=== PATIENT | female | born 1950 | race African-American/Black ===

== ENCOUNTER 2019-11-15 17:38 | Emergency (ER) | payer MEDICARE, SELFPAY ==
--- NOTE | ~2019-11-15 | CT_ITS ---
EXAMINATION: CT brain wo con DATE: 11/15/2019 18:28 INDICATION: Hypertension. Numbness. Paresthesias at the legs. TECHNIQUE: Computed tomography (CT) of the head was performed without intravenous contrast. Sagittal and coronal reconstructions were performed. The mA was adjusted according to patient size. Iterative reconstruction technique was employed. The dose-length product was 605.33 mGy-cm. COMPARISON: None FINDINGS: No acute intracranial hemorrhage, acute infarction or abnormal extra axial fluid collection. There is mild scattered white matter hypoattenuation consistent with chronic small vessel ischemic disease. V entricles are normal and symmetric. No mass/mass effect. The orbits, paranasal sinuses and mastoid ai r cells are normal. Intracranial calcified cerebral atherosclerosis is noted at the carotid siphons. IMPRESSION: 1. Scattered white matter hypoattenuation consistent with chronic small vessel ischemic disease. No a cute intracranial process. Reviewed, dictated and finalized at location A. HELPER IMPRESSION: 1. Scattered white matter hypoattenuation consistent with chronic small vessel ischemic disease. No acute intracranial process.
--- NOTE | ~2019-11-15 | CT_ITS ---
EXAMINATION: CT abdomen pelvis wo con DATE: 11/15/2019 19:20 INDICATION: Elevated liver function tests TECHNIQUE: Computed tomography (CT) of the abdomen and pelvis was performed with 100 mL Omnipaque-350 intravenous contrast. Automated exposure control and iterative reconstruction technique were employe d. The dose-length product was 1448.03 mGy-cm. COMPARISON: None FINDINGS: Lung bases are clear. Heart size is normal. Atherosclerotic coronary artery calcification. No pericar dial or pleural effusion. Liver, gallbladder, spleen, pancreas, bilateral adrenal glands and kidneys are normal. 2 short segments of the transverse colon extending to a couple of several small ventral h ernias. No bowel obstruction. Appendix is normal. Bladder and bilateral adnexa are normal. The uterus is not identified and has likely been surgically resected. No free intraperitoneal gas or fluid. No pathologically enlarged abdominal or pelvic lymphadenopathy. Moderate degenerative skeletal changes i n the lumbar spine and at the bilateral sacroiliac joints. IMPRESSION: 1. No acute intra-abdominal/pelvic process. 2. Multiple ventral hernias 2 containing short segments of nonobstructed transverse colon. Reviewed, dictated and finalized at location A. K PACKER IMPRESSION: 1. No acute intra-abdominal/pelvic process. 2. Multiple ventral hernias 2 containing short segments of nonobstructed transv erse colon.
[2019-11-15 17:43] VITALS: BP 161/100; PULSE 105; RESP 18; TEMP 36.3; O2SAT 100
--- NOTE | 2019-11-15 17:57 | ECG_ITS ---
Measurements Intervals [place] Rate: 110 P: 42 ND: 201 QRS: -39 QRSD: 85 T: 15 QT: 320 QTc: 433 Interpretive Statements SINUS TACHYCARDIA POOR R WAVE PROGRESSION, ANTERIOR LEADS INFERIOR INFARCT, AGE INDETERMINATE ABNORMAL ECG Electronically Signed On 11-16-2019 7:16:04 [employer] SALES REPRESENTATIVE by Tom Arenas D.O.
--- NOTE | 2019-11-15 18:10 | ED.RECABL ---
HPI - Recheck/Abnormal Lab/Rx General Chief Complaint: Recheck/Abnormal Lab/Rx Stated Complaint: high blood pressure Time Seen by Provider: 11/15/19 18:02 Source: patient and RN notes reviewed Mode of arrival: ambulatory Limitations: no limitations History of Present Illness HPI narrative: Pt is a 69 y/o female with a Hx of HTN, who presents to the ED with c/o hypertension. She notes that she is currently taking her normal dosage of bisoprolol-hydrochlorothiazide, Hydralazine 100 mg BID, and Clonidine .2 mg HS, stating that she last took her HCTZ and Hydralazine around 10 AM this morning. Pt notes that she is due to take her Hydralazine around 10 PM this evening. She states that she has been checking her BP on her home monitor over the past several days, and states that her BP was 183/94 this afternoon, which prompted her to be seen at an urgent care facility. Pt was subsequently sent to the ED. She currently reports a frontal headache, dyspnea on exertion, and tingling in her bilateral legs starting today. Pt describes her headache as a pressure behind her eyes. She denies any CP. MD complaint: abnormal lab Description of abnormal result: BP of 183/94. Associated symptoms: other (dyspnea on exertion; frontal headache; tingling in bilateral legs) Related Data Home Medications Medication Instructions Recorded Confirmed albuterol sulfate [Ventolin HFA] 2 puff INHALATION Q6H PRN 11/15/19 bisoprolol-hydrochlorothiazide 1 tablet PO DAILY 11/15/19 clonidine HCl 0.2 mg PO HS 11/15/19 hydralazine 100 mg PO BID 11/15/19 mometasone [Asmanex HFA] 2 puff INHALATION BID 11/15/19 montelukast 10 mg PO DAILY 11/15/19 yzotvkqoffmk-vtfv-nbhzq acid 1 tablet PO DAILY 11/15/19 [Centrum Women] olopatadine 1 drp OPHTHALMIC (EYE) BID 11/15/19 pravastatin 20 mg PO DAILY 11/15/19 tramadol 50 mg PO HS 11/15/19 Allergies Allergy/AdvReac Type Severity Reaction Status Date / Time iodine Allergy Severe THROAT Verified 11/15/19 17:57 SWELLS CLOSED Sulfa (Sulfonamide Allergy Unknown Verified 11/15/19 17:57 Antibiotics) Shrimp Allergy Severe THROAT Uncoded 11/15/19 17:57 BLACK CLOSED Review of Systems Review of Systems: All systems reviewed & are unremarkable except as noted in HPI and below Constitutional: Constitutional: Reports headache(s) (frontal) Cardiovascular: Cardiovascular: Denies chest pain Respiratory: Respiratory: Reports dyspnea on exertion Neurologic: Reports tingling (bilateral legs) PMFSH Past Medical History Medical History Anemia HTN (hypertension) Osteoarthritis Umbilical hernia Surgical History Surgical History History of section History of hysterectomy History of right knee joint replacement Hx of umbilical hernia repair Social History Social History Smoking status: Never smoker Gender identity (if verbalized by the patient): Female Exam Narrative: Exam Narrative: APPEARANCE: No acute distress, nontoxic, resting in bed EYES: EOMI HEENT: Normocephalic, atraumatic, OMM RESPIRATORY: No respiratory distress Clear to auscultation bilaterally with no rhonchi wheezing or rales. CARDIOVASCULAR: Regular rate and rhythm without murmurs rubs or gallops. ABDOMINAL: Soft, nontender, nondistended, no rebound or guarding MUSCULOSKELETAl: Moves all extremities. No clubbing, cyanosis or edema. NEURO: Awake and alert bx 3. Following commands, speech normal, no focal deficits, muscle strength 5 out of 5 bilateral upper and lower extremities SKIN:: Warm, dry. No rashes lesions or abrasions PSYCHIATRIC: Normal affect/mood, Course Course Emergency Course: Patient normally takes Catapres 0.2 mg at night as well as hydralazine Catapres given with improvement of blood pressure Discussed with patient lab work came back. Patient denies any a
[2019-11-15 18:26] LABS: Basophils Percent Auto 0.7 % (0.2-1.2); Eosinophils Absolute Auto 0.1 K/mm3 (0-0.3); Eosinophils Percent Auto 1.3 % (0-4.4); Hematocrit 48.1 % (37.0-47.0); Hemoglobin 14.9 g/dL (12.0-15.0); Immature Granulocyte Absolute 0.02 K/mm3 (0.00-0.031); Immature Granulocyte Percent A 0.3 % (0-0.5); Lymphocytes Absolute Auto 1.92 K/mm3 (0.9-3.2); Lymphocytes Percent Auto 32.1 % (18.3-44.2); Mean Corpuscular Hemoglobin 28.5 pg (26-34); Mean Corpuscular Volume 92.1 fl (80-100); Mean Platelet Volume 12.3 fl (7.4-10.4); Monocytes Absolute Auto 0.6 K/mm3 (0.1-0.6); Monocytes Percent Auto 9.9 % (2.6-8.5); Neutrophils Absolute Auto 3.3 K/mm3 (1.3-6.7); Neutrophils Percent Auto 55.7 % (45.5-73.1); Platelet Count Result 156 k/mm3 (150-375); Red Blood Count 5.22 M/mm3 (4.2-5.4); Red Cell Distribution Width 17.9 % (11.5-14.5)
[2019-11-15] MEDS: CLONIDINE HCL 0.2 MG TABLET PO (18:35)
[2019-11-15 18:37] LABS: Alanine Aminotransferase 566 U/L (4-35); Alkaline Phosphatase 166 U/L (38-126); Aspartate Amino Transferase 581 U/L (14-36); Bilirubin,Total 4.1 mg/dL (0.2-1.3); Blood Urea Nitrogen 9 mg/dL (7-17); Calcium 9.4 mg/dL (8.4-10.2); Carbon Dioxide 26 mmol/L (22-30); Chloride 103 mmol/L (98-107); Estimated Glomerular Filt Rate > 60; Glucose 102 mg/dL (65-105); Potassium 3.8 mmol/L (3.4-5.0); Sodium 141 mmol/L (137-145)
[2019-11-15 19:07] VITALS: BP 178/105; PULSE 84; RESP 14; O2SAT 100
--- NOTE | 2019-11-15 19:26 | PC.NURSE ---
Called lab to add on Lipase
[2019-11-15 19:34] LABS: Lipase 210 U/L (23-300)
[2019-11-15 20:13] VITALS: BP 156/89; PULSE 74; RESP 20; O2SAT 98
--- NOTE | 2019-11-15 21:30 | PC.NURSE ---
Called lab to add on PT INR, PTT, Hepatitis Panel
[2019-11-15 21:49] LABS: INR 1.2; Prothrombin Time 14.5 Seconds (11.1-14.7)
[2019-11-15 22:13] LABS: Hepatitis B Surface Antigen Negative (Negative)
[2019-11-15 22:19] LABS: HAV RESULT Negative (Negative); Hepatitis B Core IgM Result Negative (Negative)
[2019-11-15 22:31] LABS: Hepatitis C Virus Antibody Negative (Negative)
[2019-11-15 22:51] VITALS: BP 168/86; PULSE 87; RESP 20; O2SAT 100
== END 2019-11-15 22:56 | disposition home or self-care (01) ==
PROVIDERS: Emergency Provider Emergency Medicine
DX: I10 Essential (primary) hypertension (principal); R94.5 Abnormal results of liver function studies; D64.9 Anemia, unspecified; M19.90 Unspecified osteoarthritis, unspecified site; Z96.651 Presence of right artificial knee joint; K43.9 Ventral hernia without obstruction or gangrene; R00.0 Tachycardia, unspecified; R94.31 Abnormal electrocardiogram [ECG] [EKG]
CPT/HCPCS: 36415; 70450; 74176; 80053; 80074; 83690; 85025; 85610; 85730; 93005; 99284; A9270

== ENCOUNTER 2019-11-25 11:09 | Outpatient (CLI) | payer MEDICARE, SELFPAY ==
--- NOTE | ~2019-11-25 | US_ITS ---
US right upper quadrant INDICATION: Increased liver enzymes PROCEDURE: Realtime right upper abdominal ultrasound. COMPARISON: No prior studies for comparison. FINDINGS: The pancreas is not adequately visualized due to bowel gas. Liver echotexture is increased , consistent with fatty infiltration. There is normal directional flow in the portal vein. The gallbladder is normal without stones, gallbladder wall thickening or pericholecystic fluid. Comm on bile duct measures 5 mm. No sonographic Rodriguez's sign. IMPRESSION: 1: Hepatic steatosis. Reviewed, dictated and finalized at location A. IMPRESSION: 1: Hepatic steatosis.
== END 2019-11-25 11:10 | disposition home or self-care (01) ==
DX: K76.0 Fatty (change of) liver, not elsewhere classified (principal)
CPT/HCPCS: 76705

== ENCOUNTER → 2019-12-11 15:04 | Outpatient (CLI) | payer MEDICARE, SELFPAY ==
--- NOTE | ~2019-12-11 | MM_ITS ---
EXAMINATION: MM screening [facility] w nakia HISTORY: Screening mammogram TECHNIQUE: Craniocaudal and mediolateral oblique 3-D tomosynthesis images were obtained and synthetic 2-D images were generated. CAD analysis was submitted and interpreted. COMPARISON: 09/14/2018, 06/07/2017, 01/28/2016 bilateral digital screening mammogram examinations BREAST PARENCHYMAL COMPOSITION: There are scattered areas of fibroglandular density. FINDINGS: There is no evidence of suspicious mass, calcification, or architectural distortion to sugg est malignancy in either breast. There has been no suspicious interval change. IMPRESSION: 1. No mammographic evidence of malignancy. 2. Recommend routine screening mammography in one year. BI-RADS Category 1: Negative Reviewed, dictated and finalized at location A.
== END ==
DX: Z12.31 Encounter for screening mammogram for malignant neoplasm of breast (principal)
CPT/HCPCS: 77063; 77067

== ENCOUNTER 2020-07-23 14:47 | Outpatient (CLI) | payer MEDICARE, SELFPAY ==
--- NOTE | ~2020-07-23 | DEXA_ITS ---
Bone Density Report Name: Malathi Barboza Age: 70 Sex: Female Ethnicity: Black Date of : 1950 Indication: postmenopausal; height loss; hysterectomy; Referring Provider: PHYSICIAN NOT ON STAFF Study: Bone densitometry was performed. Exam Date: July 23, 2020 Accession number: [id number] Bone Density: Region BMD T-score Z-score Classification AP Spine (L2, L3, L4) 1.152 0.7 2.0 Normal Femoral Neck (Left) 0.562 -2.6 -1.3 Osteoporosis Total Hip (Left) 0.732 -1.7 -0.8 Osteopenia Total Hip Bilateral Avg 0.834 -0.9 -0.2 Normal Femoral Neck (Right) 0.699 -1.4 -0.4 Osteopenia Total Hip (Right) 0.934 -0.1 0.5 Normal World Health Organization criteria for BMD impression classify patients as: Normal (T-score at or above -1.0), Osteopenia (T-score between -1.0 and -2.5), or Osteoporosis (T-score at or below -2.5). 10-year Fracture Risk: FRAX not reported because: Some T-score for Spine Total or Hip Total or Femoral Neck at or below -2.5 Previous Exams: Region Exam Age BMD T-score BMD Change BMD Change Date g/cm2 vs Baseline vs Previous AP Spine(L2, L3, L4) 07/23/2020 70 1.152 0.7 0.068(6.3%)# 0.089(8.4%)# 02/18/2018 67 1.063 -0.1 -0.021(-2.0%)# -0.021(-2.0%)# 07/29/2010 60 1.084 0.0 Total Hip(Left) 07/23/2020 70 0.732 -1.7 -0.304(-29.3%) -0.144(-16.5%) 02/18/2018 67 0.876 -0.5 -0.160(-15.4%) -0.160(-15.4%) 07/29/2010 60 1.036 0.8 Total Hip(Right) 07/23/2020 70 0.934 -0.1 0.094(11.2%)# 0.094(11.2%)# 02/18/2018 67 0.840 -0.8 0.000(0.0%)# 0.000(0.0%)# 07/29/2010 60 0.840 -0.8 *Denotes significance at 95% confidence level, LSC for AP Spine = 0.022 g/cm2, LSC for Total Hip = 0.027 g/cm2 Clinical Information Provided by Patient: Has used the following medications: Vitamin D, Calcium Has the following medical conditions: Hysterectomy Patient maximum height was 67 Menopause Age: 46 No regular weight bearing exercise Onset of menses at age 13 Number of children 1 Impression: The patient has osteoporosis, based on the Left Femoral Neck T-score. No significant bone loss was observed. Discussion: INCREASED RISK OF FRACTURE. BONE DENSITY IS UNDESIRABLY LOW AT ONE OR MORE SKELETAL SITES, CONSISTENT WITH POSTMENOPAUSAL OSTEOPOROSIS. This patient's lowest T-score meets the World Health Organization's (WHO) criteria for osteoporosis at one or more sites (T-score -2.5 or below). In untreated patients, the ri
== END 2020-07-23 14:48 | disposition home or self-care (01) ==
LOC: ANHIMG 14:49
DX: Z78.0 Asymptomatic menopausal state (principal); Z13.820 Encounter for screening for osteoporosis; M81.0 Age-related osteoporosis without current pathological fracture; M85.852 Other specified disorders of bone density and structure, left thigh; M85.851 Other specified disorders of bone density and structure, right thigh
CPT/HCPCS: 77080

== ENCOUNTER 2020-11-30 10:21 | Outpatient (CLI) | payer MEDICARE, SELFPAY | END 2020-11-30 10:22 | disposition home or self-care (01) | LOC: ANHCOVIDVC 10:21 | DX: Z23 Encounter for immunization (principal) | CPT/HCPCS: 0001A; 91300 ==

== ENCOUNTER 2020-12-21 10:31 | Outpatient (CLI) | payer MEDICARE, SELFPAY | END 2020-12-21 10:32 | disposition home or self-care (01) | LOC: ANHCOVIDVC 10:31 | DX: Z23 Encounter for immunization (principal) | CPT/HCPCS: 0002A; 91300 ==

== ENCOUNTER → 2021-02-16 11:52 | Outpatient (CLI) | payer MEDICARE, SELFPAY ==
--- NOTE | ~2021-02-16 | MM_ITS ---
EXAMINATION: MM screening [facility] BI w nakia HISTORY: Screening TECHNIQUE: Craniocaudal and mediolateral oblique 3-D tomosynthesis images were obtained and synthetic 2-D images were generated. CAD analysis was submitted and interpreted. COMPARISON: Comparison to multiple prior studies sequentially, with oldest reviewed study dated 03/04. BREAST PARENCHYMAL COMPOSITION: There are scattered areas of fibroglandular density. FINDINGS: There is no evidence of suspicious mass, calcification, or architectural distortion to sugg est malignancy in either breast. There has been no suspicious interval change. IMPRESSION: 1. No mammographic evidence of malignancy. 2. Recommend routine screening mammography in one year. BI-RADS Category 1: Negative Reviewed, dictated and finalized at location A.
== END ==
DX: Z12.31 Encounter for screening mammogram for malignant neoplasm of breast (principal)
CPT/HCPCS: 77063; 77067

== ENCOUNTER 2022-04-06 12:45 | Outpatient (CLI) | payer MEDICARE, SELFPAY ==
--- NOTE | 2022-04-06 | ECHO_ITS ---
Patient Info Name: Malathi Barboza Age: 71 years : 1950 Gender: Female Ht: 67 in Wt: 260 lbs BSA: 2.42 m2 HR: 72 bpm BP: 135 / 83 mmHg Heart Rhythm: Sinus Rhythm Exam Date: 04/06/2022 1:32 PM Exam Location: [facility] Patient Status: Outpatient Admit Date: 04/06/2022 Staff Ordering Physician: PHYSICIAN NOT ON STAFF, NONSTAFF Director Of Student Affairs: Jan Rodriguez, ALEISHA, RT Attending Provider: PHYSICIAN NOT ON STAFF, NONSTAFF Exam Type: CA echo doppler color flow Study Info Indications I42.9 - Cardiomyopathy, unspecified Complete two-dimensional, color flow and Doppler transthoracic echocardiogram is performed. Strain analysis performed. Summary 1. Complete two-dimensional, color flow and Doppler transthoracic echocardiogram is performed. 2. Normal left ventricular size with mild concentric hypertrophy. Systolic function at the lower end of normal. No segmental wall motion abnormalities. Grade 2 diastolic dysfunction. Global longitudinal strain is moderately reduced at 13%, consistent with systolic dysfunction. 3. Left atrial chamber dimension is mildly enlarged. 4. There is mild bileaflet mitral valve prolapse with moderate mitral valve regurgitation. 5. There is mild aortic valve calcification with no stenosis. 6. Normal sinus rhythm. Left Ventricle Left ventricular chamber dimension is normal. Left ventricular systolic function is normal, estimated at 55-60%. There is mildly increased left ventricular wall thickness. Left ventricular septal wall motion is normal. The left ventricular diastolic function is grade II diastolic dysfunction. Global longitudinal strain is moderately elevated at -13 %. Right Ventricle Right ventricular chamber dimension is normal. Right ventricular systolic function is normal. Left Atria Left atrial chamber dimension is mildly enlarged. Right Atria Right atrial chamber dimension is normal. Aortic Valve The aortic valve is trileaflet. There is no aortic valve sclerosis. There is no aortic valve stenosis. There is no aortic valve regurgitation. There is mild aortic valve calcification with no stenosis. Pulmonic Valve The pulmonic valve is normal. There is no pulmonic valve stenosis. There is no pulmonic regurgitation. Mitral Valve The mitral valve has bileaflet prolapse. There is no mitral valve stenosis. There is mild bileaflet mitral valve prolapse with moderate mitral valve regurgitation. There is mild mitral valve calcification. Tricuspid Valve The tricuspid valve leaflets are normal. There is no significant tricuspid valve stenosis. There is trace tricuspid valve regurgitation. No pulmonary hypertension, estimated pulmonary arterial systolic pressure is Empty. Pericardium/Pleural The pericardium appears normal. There is no pericardial effusion. Inferior Vena Cava Normal inferior vena cava with >50% collapse upon inspiration consistent with Empty right atrial pressure, Empty. Aorta The aortic root size at the sinus of Valsalva is normal. The prox ascending aorta size is normal. Left Ventricular Outflow Tract Name Value Normal LVOT 2D LVOT Diameter 2.0 cm LVOT Doppler
== END 2022-04-06 12:46 | disposition home or self-care (01) ==
LOC: ANHCARD 12:47
DX: I25.10 Atherosclerotic heart disease of native coronary artery without angina pectoris (principal); I25.5 Ischemic cardiomyopathy; I42.9 Cardiomyopathy, unspecified
CPT/HCPCS: 93306

== ENCOUNTER 2022-05-03 13:30 | Outpatient (RCR) | payer MEDICARE, SELFPAY | END 2022-05-03 14:00 | disposition home or self-care (01) | LOC: ANHCPREHAB 13:30 | DX: Z95.1 Presence of aortocoronary bypass graft (principal) | CPT/HCPCS: 93798 ==

== ENCOUNTER → 2022-10-09 10:45 | Outpatient (CLI) | payer MEDICARE, SELFPAY ==
--- NOTE | ~2022-10-09 | MM_ITS ---
EXAMINATION: MM screening [facility] BI w nakia HISTORY: Screening mammogram TECHNIQUE: Craniocaudal and mediolateral oblique 3-D tomosynthesis images were obtained and synthetic 2-D images were generated. CAD analysis was submitted and interpreted. COMPARISON: 02/16/2021, 12/11/2019, 09/14/2018 bilateral screening mammogram examinations BREAST PARENCHYMAL COMPOSITION: There are scattered areas of fibroglandular density. FINDINGS: There is no evidence of suspicious mass, calcification, or architectural distortion to sugg est malignancy in either breast. There has been no suspicious interval change. IMPRESSION: 1. No mammographic evidence of malignancy. 2. Recommend routine screening mammography in one year. BI-RADS Category 1: Negative Reviewed, dictated and finalized at location A. ENDER CUTTER
== END ==
DX: Z12.31 Encounter for screening mammogram for malignant neoplasm of breast (principal)
CPT/HCPCS: 77063; 77067

== ENCOUNTER → 2022-11-03 12:14 | Outpatient (CLI) | payer MEDICARE, SELFPAY ==
--- NOTE | ~2022-11-03 | DEXA_ITS ---
Bone Density Report Name: ELIZABETH ALFARO Age: 72 Sex: Female Ethnicity: White Date of : 1950 Indication: postmenopausal; screening for osteoporosis; height loss; hysterectomy; Referring Provider: ROCIO LIMA Study: Bone densitometry was performed. Exam Date: November 03, 2022 Accession number: [id number] Bone Density: Region BMD T-score Z-score Classification AP Spine (L1-L4) 1.111 0.6 2.8 Normal Femoral Neck (Left) 0.459 -3.5 -1.6 Osteoporosis Total Hip (Left) 0.864 -0.6 0.9 Normal Femoral Neck (Right) 0.685 -1.5 0.4 Osteopenia Total Hip (Right) 0.915 -0.2 1.4 Normal Total Hip Mean 0.890 -0.4 1.2 Normal World Health Organization criteria for BMD impression classify patients as: Normal (T-score at or above -1.0), Osteopenia (T-score between -1.0 and -2.5), or Osteoporosis (T-score at or below -2.5). 10-year Fracture Risk: FRAX not reported because: Some T-score for Spine Total or Hip Total or Femoral Neck at or below -2.5 Clinical Information Provided by Patient: Has used the following medications: Vitamin D, Calcium, STEROID INHALER Has the following medical conditions: Hysterectomy Patient maximum height was 67 Menopause Age: 43 Drinks caffeinated beverages Onset of menses at age 13 Number of children 1 Impression: The patient has osteoporosis, based on the Left Femoral Neck T-score. Discussion: INCREASED RISK OF FRACTURE. BONE DENSITY IS UNDESIRABLY LOW AT ONE OR MORE SKELETAL SITES, CONSISTENT WITH POSTMENOPAUSAL OSTEOPOROSIS. This patient's lowest T-score meets the World Health Organization's (WHO) criteria for osteoporosis at one or more sites (T-score -2.5 or below). In untreated patients, the risk of osteoporotic fracture increases approximately two-fold for each 1.0 SD decrease in T-score. Low bone density is not the only risk factor for fracture; also consider factors such as patient's age, frailty or poor health, risk of falling, risk of injury, previous osteoporotic fracture, family history of osteoporosis, cigarette smoking, low body weight, etc. Not everyone with low bone mineral density has osteoporosis; osteomalacia and other metabolic bone disorders should also be considered. Patients who have osteoporosis should be evaluated for specific diseases and conditions (secondary causes) that may cause or contribute to bone loss. The [place] Association of Clinical Endocrinologists (AACE) and National Osteoporosis Foundation (NOF) recommend pharmacologic intervention for all postmenopausal women whose T-score is in this range. The patient should follow a healthful lifestyle (good nutrition with adequate calcium and vitamin D, and appropriate weight-bearing exercise). Follow-Up: Consider a repeat BMD and Vertebral Fracture Assessment (VFA) exam in 2 years or sooner if medica
== END ==
DX: M81.0 Age-related osteoporosis without current pathological fracture (principal); M85.851 Other specified disorders of bone density and structure, right thigh
CPT/HCPCS: 77080

== ENCOUNTER 2023-11-06 12:46 | Outpatient (CLI) | payer MEDICARE, SELFPAY ==
[2023-11-06 14:18] LABS: Basophils Percent Auto 0.7 % (0.2-1.2); Eosinophils Absolute Auto 0.2 K/mm3 (0-0.3); Eosinophils Percent Auto 4.1 % (0-4.4); Hematocrit 38.7 % (37.0-47.0); Immature Granulocyte Absolute 0.01 K/mm3 (0.00-0.031); Immature Granulocyte Percent A 0.2 % (0-0.5); Lymphocytes Absolute Auto 1.92 K/mm3 (0.9-3.2); Lymphocytes Percent Auto 35.5 % (18.3-44.2); Mean Corpuscular Hemoglobin 28.8 pg (26-34); Mean Corpuscular Volume 92.8 fl (80-100); Mean Platelet Volume 11.7 fl (7.4-10.4); Monocytes Absolute Auto 0.3 K/mm3 (0.1-0.6); Monocytes Percent Auto 6.3 % (2.6-8.5); Neutrophils Absolute Auto 2.9 K/mm3 (1.3-6.7); Neutrophils Percent Auto 53.2 % (45.5-73.1); Platelet Count Result 190 k/mm3 (150-375); Red Blood Count 4.17 M/mm3 (4.2-5.4); Red Cell Distribution Width 12.8 % (11.5-14.5); White Blood Count 5.4 K/mm3 (4.5-10.0)
[2023-11-06 14:51] LABS: Alanine Aminotransferase 22 U/L (6-35); Albumin Level 4.4 g/dL (3.5-5.1); Alkaline Phosphatase 88 U/L (38-126); Anion Gap 3 mmol/L (8-16); Aspartate Amino Transferase 49 U/L (14-36); Bilirubin,Total 0.5 mg/dL (0.2-1.3); Blood Urea Nitrogen 17 mg/dL (7-17); Calcium 10.2 mg/dL (8.4-10.2); Carbon Dioxide 32 mmol/L (22-30); Chloride 107 mmol/L (98-107); Estimated Glomerular Filt Rate > 60; Glucose 94 mg/dL (65-110); Potassium 4.5 mmol/L (3.4-5.0); Sodium 142 mmol/L (137-145)
[2023-11-06 15:25] LABS: Creatinine Urine 113.6 mg/dL
[2023-11-06 15:29] LABS: MALB Creatinine Ratio 7.3 mg/g (0-30); Microalbumin Urine Random 8.3 mg/L (0-16.7)
[2023-11-06 15:47] LABS: Hemoglobin A1C 5.6 % (<5.7)
[2023-11-10 05:56] LABS: Vitamin D 1,25 (OH)2 Total 42 pg/mL (18-72); Vitamin D2 1,25 (OH)2 <8 pg/mL; Vitamin D3 1,25 (OH)2 42 pg/mL
== END 2023-11-06 12:47 | disposition home or self-care (01) ==
PROVIDERS: PCP Family Medicine; Visit Provider Nurse Practitioner Family
DX: E55.9 Vitamin D deficiency, unspecified (principal); I10 Essential (primary) hypertension; E11.9 Type 2 diabetes mellitus without complications; I25.10 Atherosclerotic heart disease of native coronary artery without angina pectoris
CPT/HCPCS: 36415; 80053; 82043; 82652; 83036; 85025

== ENCOUNTER → 2023-11-08 12:43 | Outpatient (CLI) | payer MEDICARE, SELFPAY ==
--- NOTE | ~2023-11-08 | MM_ITS ---
EXAMINATION: MM screening [facility] BI w nakia HISTORY: Screening TECHNIQUE: Craniocaudal and mediolateral oblique 3-D tomosynthesis images were obtained and synthetic 2-D images were generated. CAD analysis was submitted and interpreted. COMPARISON: Comparison to multiple prior studies sequentially, with oldest reviewed study dated 01/27. BREAST PARENCHYMAL COMPOSITION: Not dense: There are scattered areas of fibroglandular density. FINDINGS: There is no evidence of suspicious mass, calcification, or architectural distortion to sugg est malignancy in either breast. There has been no suspicious interval change. IMPRESSION: 1. No mammographic evidence of malignancy. 2. Recommend routine screening mammography in one year. BI-RADS Category 1: Negative Reviewed, dictated and finalized at location A. MACIST IN CHARGE
== END ==
PROVIDERS: PCP Nurse Practitioner Family; Visit Provider Nurse Practitioner Family
DX: Z12.31 Encounter for screening mammogram for malignant neoplasm of breast (principal)
CPT/HCPCS: 77063; 77067

== ENCOUNTER 2024-01-18 11:37 | Outpatient (CLI) | payer MEDICARE, SELFPAY ==
[2024-01-18 20:37] LABS: Alanine Aminotransferase 20 U/L (6-35); Albumin Level 4.4 g/dL (3.5-5.1); Alkaline Phosphatase 85 U/L (38-126); Anion Gap 5 mmol/L (4-12); Aspartate Amino Transferase 29 U/L (14-36); Bilirubin,Total 0.8 mg/dL (0.2-1.3); Blood Urea Nitrogen 15 mg/dL (7-17); Calcium 9.9 mg/dL (8.4-10.2); Carbon Dioxide 30 mmol/L (22-30); Chloride 106 mmol/L (98-107); Cholesterol 160 mg/dL (0-200); Creatine Kinase 83 U/L (30-135); Estimated Glomerular Filt Rate > 60; Glucose 94 mg/dL (65-110); HDL Direct 40 mg/dL; Potassium 4.6 mmol/L (3.4-5.0); Sodium 141 mmol/L (137-145); Triglycerides 127 mg/dL (<150)
[2024-01-18 20:47] LABS: LDL Cholesterol Direct 77 mg/dL
== END 2024-01-18 11:38 | disposition home or self-care (01) ==
PROVIDERS: PCP Family Medicine; Visit Provider Family Medicine
DX: I25.5 Ischemic cardiomyopathy (principal); M62.81 Muscle weakness (generalized); M62.838 Other muscle spasm
CPT/HCPCS: 36415; 80053; 80061; 82550

== ENCOUNTER 2025-04-21 11:00 | Outpatient (CLI) | payer MEDICARE, SELFPAY ==
--- NOTE | ~2025-04-21 | DEXA_ITS ---
Bone Density Report Name: ELIZABETH ALFARO Age: 74 Sex: Female Ethnicity: White Date of : 1950 Indication: postmenopausal; screening for osteoporosis; height loss; asthma or emphysema; hysterectomy; Referring Provider: DONATO, PERNELL Conroy Study: Bone densitometry was performed. Exam Date: April 21, 2025 Accession number: [id number] Bone Density: Region BMD T-score Z-score Classification AP Spine(L1, L3, L4) 1.079 0.2 2.6 Normal Femoral Neck (Left) 0.391 -4.1 -2.1 Osteoporosis Total Hip (Left) 0.865 -0.6 1.1 Normal Femoral Neck (Right) 0.696 -1.4 0.6 Osteopenia Total Hip (Right) 0.911 -0.3 1.5 Normal Total Hip Mean 0.888 -0.5 1.3 Normal World Health Organization criteria for BMD impression classify patients as: Normal (T-score at or above -1.0), Osteopenia (T-score between -1.0 and -2.5), or Osteoporosis (T-score at or below -2.5). 10-year Fracture Risk: FRAX not reported because: Some T-score for Spine Total or Hip Total or Femoral Neck at or below -2.5 Previous Exams: -- Region Exam Age BMD T-score BMD Change BMD Change Date g/cm2 vs Baseline vs Previous -- AP Spine (L1,L3-L4) 04/21/2025 74 1.079 0.2 -0.5% -0.5% 11/03/2022 72 1.085 0.3 Total Hip(Left) 04/21/2025 74 0.865 -0.6 0.1% 0.1% 11/03/2022 72 0.864 -0.6 Total Hip(Right) 04/21/2025 74 0.911 -0.3 -0.5% -0.5% 11/03/2022 72 0.915 -0.2 -- *Denotes significance at 95% confidence level, LSC for AP Spine = 0.022 g/cm2, LSC for Total Hip = 0.027 g/cm2 Clinical Information Provided by Patient: Has used the following medications: Vitamin D, Calcium Has the following medical conditions: Asthma or Emphysema, Hysterectomy Patient maximum height was 67 Menopause Age: 43 No regular weight bearing exercise Drinks caffeinated beverages Onset of menses at age 13 Number of children 1 Impression: The patient has osteoporosis, based on the Left Femoral Neck T-score. No significant bone loss was observed. Discussion: HIGH RISK OF FRACTURE. BONE DENSITY IS UNDESIRABLY LOW AT ONE OR MORE SKELETAL SITES, CONSISTENT WITH OSTEOPOROSIS. ALSO, BONE DENSITY IS LOWER THAN EXPECTED FOR AGE AND SEX AT ONE OR MORE SKELETAL SITES; RECOMMEND A DILIGENT SEARCH FOR SECONDARY CAUSES OF BONE LOSS. This patient's lowest T-score meets the World Health Organization's (WHO) criteria for osteoporosis at one or more sites (T-score -2.5 or below). In untreated patients, the risk of osteoporotic fracture increases approximately two-fold for each 1.0 SD decrease in T-score. Low bone density is not the only risk factor for fracture; also consider factors such as patient's age, frailty or poor health, risk of falling, risk of injury, previous osteoporotic fracture, family history of osteoporosis, cigarette smoking, low body weight, etc. Not everyone with low bone mineral density has osteoporosis; osteomalacia and other metabolic bone disorders should also be considered. Patients who have osteoporosis should be evaluated for specific diseases and conditions (secondary causes) that may cause or contribute to bone loss. The [place] [employer] Clinical Endocrinologists (AACE) and National Osteoporosis Foundation (NOF) recommend pharmacologic intervention for all postmenopausal women whose T-score is in this range. Also, this patient's bone mineral density is below the range considered normal for healthy age-, sex-, and race-matched controls at least one site (Z-score -2.0 or below). This warrants careful evaluation for diseases and conditions that may contribute to accelerated bone loss. The patient should follow a healthful lifestyle (good nutrition with adequate calcium and vitamin D, and appropriate weight-bearing exercise). Follow-Up: Consider a repeat BMD and Vertebral Fracture Assessment (VFA) exam in 2 years or sooner if medically necessary, to reassess this patient's status. Reported by: THERON on 04/21/2025 12:04:00 PM. Reviewed, dictated and finalized at location A.
== END 2025-04-21 11:01 | disposition home or self-care (01) ==
LOC: MICIMG 11:01
PROVIDERS: PCP Family Medicine; Visit Provider Family Medicine
DX: M81.0 Age-related osteoporosis without current pathological fracture (principal); M85.851 Other specified disorders of bone density and structure, right thigh
CPT/HCPCS: 77080